=== PATIENT | female | born 1950 | race Hispanic/Latino ===

== ENCOUNTER 2024-05-06 09:10 | Emergency (ER) | payer SELFPAY ==
[~2024-05-06] VITALS: Ht 160 cm; Wt 88.5 kg
[2024-05-06 09:16] VITALS: PULSE 101; RESP 20; TEMP 102.6
[2024-05-06] MEDS ORDERED: PAXLOVID 300-11 EAC1 PO (09:33)
[2024-05-06] MEDS ORDERED: BENZONATATE100 MG PO (09:33)
[2024-05-06] MEDS: IBUPROFEN 400 MG TAB PO ONE (09:35)
[2024-05-06 10:17] VITALS: BP 156/84; PULSE 95; RESP 19; TEMP 100.6; O2SAT 100
== END 2024-05-06 10:19 | disposition home or self-care (01) ==
LOC: ER 09:16
DX: R05.9 Cough, unspecified (principal); U07.1 COVID-19; R51.9 Headache, unspecified
CPT/HCPCS: 99282